=== PATIENT | female | born 1965 | race African-American/Black ===

== ENCOUNTER 2016-11-09 12:36 | Emergency (ER) | payer BC ==
[~2016-11-09 12:36] MED LIST: BEN25 PO; COZ50 PO; COZAAR100 MG PO; HCTZ25B PO; L20 PO; LOP25 PO; NORCO1 TA2 PO; NORCO1 TAB PO; NORV5 PO; PERCOCET1 TA2 PO; PROAIR HFA PO; PROVHFA INH; PROVHFA PO; PROZAC40 MG PO; VALTREX1 GM PO; VITAMIN D1000 UNI1 PO; WEIGHT LOSS IM; ZOCOR10 PO; ZOCOR20 PO; ZOL50 PO
[2016-11-09 13:27] LABS: BASOPHILS 0.3 %; BASOPHILS ABSOLUTE 0.02 10/3/uL (0.0-0.16); EOSINOPHILS 2.4 %; EOSINOPHILS ABSOLUTE 0.19 10/3/uL (0.0-0.53); HEMATOCRIT 36.1 % (36.0-48.0); HEMOGLOBIN 11.6 g/dL (12.0-16.0); IMMATURE GRANULOCYTES 0.6 %; IMMATURE GRANULOCYTES ABSOLUTE 0.05 10/3/uL (0.0-0.11); LYMPHOCYTES 28.7 %; LYMPHOCYTES ABSOLUTE 2.27 10/3/uL (0.67-4.30); MEAN CORPUS HGB CONC 32.1 g/dL (32.0-36.0); MEAN CORPUSCULAR HEMOGLOB 26.2 pg (26.0-34.0); MEAN PLATELET VOLUME 10.9 fL (9.2-13.0); MONOCYTES 10.1 %; NEUTROPHILS 57.9 %; NEUTROPHILS ABSOLUTE 4.58 10/3/uL (2.02-8.40); PLATELET COUNT 330 10/3/uL (150-400); RBC DISTRIBUTION WIDTH 14.5 % (12.0-16.0); RED CELL COUNT 4.43 10/6/uL (4.0-5.6); WHITE BLOOD CELLS 7.9 10/3/uL (4.5-10.5)
[2016-11-09 13:28] LABS: ER CBC TAT 0 Hrs 06 MinsNP; MANUAL DIFF NO %; MEAN CORPUSCULAR VOLUME 81.5 fL (80-100)
[2016-11-09 13:34] LABS: PARTIAL THROMBO TIME 23.6 SEC (22.5-37.2); PROTIME (NOT ORD) 13.2 SEC (12.0-14.5)
[2016-11-09 13:43] LABS: CALCIUM, SERUM 9.1 MG/DL (8.5-10.4); CHEST PAIN PROFILE TAT 0 Hrs 22 Mins; CHLORIDE, SERUM 103 MMOL/L (96-112); CO2 (CARBON DIOXIDE) 25 MMOL/L (24-34); CREATININE 0.85 MG/DL (0.55-1.02); GFR AFRICAN AMERICAN 93 ML/MIN (>=60); GFR NON AFRICAN AMERICAN 80 ML/MIN (>=60); GLUCOSE, SERUM 165 MG/DL (60-99); POTASSIUM, SERUM 4.1 MMOL/L (3.5-5.3); SODIUM, SERUM 139 MMOL/L (135-148); TROPONIN I <0.02 NG/ML (<0.05)
[2016-11-09 13:44] LABS: BUN (BLOOD UREA NITROGEN) 12 MG/DL (6-23)
[2016-11-09 16:27] LABS: D-DIMER QUANTITATIVE 0.53 ug/mLFEU (< 0.50)
== END 2016-11-09 21:55 | disposition home or self-care (01) ==
LOC: ER 12:36
PROVIDERS: Emergency Medicine
DX: M25.511 Pain in right shoulder (principal); I10 Essential (primary) hypertension; J45.909 Unspecified asthma, uncomplicated; Z87.442 Personal history of urinary calculi; E11.9 Type 2 diabetes mellitus without complications; Z88.0 Allergy status to penicillin; Z88.8 Allergy status to other drugs, medicaments and biological substances; Z79.899 Other long term (current) drug therapy
CPT/HCPCS: 71020; 71275; 80048; 83735; 84484; 85025; 85379; 85610; 85730; 93005; 99285; A9270-GY; Q9967